=== PATIENT | male | born 1930 | race American Indian/Alaskan Native ===

== ENCOUNTER 2017-07-21 12:54 | Emergency (ER) | payer SELFPAY ==
[2017-07-21 13:03] VITALS: BP 175/79
[2017-07-21 15:57] LABS: Bilirubin,Urine NEG (Negative); Blood,Urine LG (Negative); Ketones,Urine NEG (Negative); Leukocyte Esterase,Urine SM (Negative); Mucus,Urine FEW /HPF; Nitrite,Urine NEG (Negative); Urobilinogen,Urine < 2.0 mg/dL (<2.0)
[2017-07-21 16:00] LABS: RBC,Urine > 182.0 /HPF (0.0-6.0)
--- NOTE | 2017-07-21 16:15 | Emergency Department Report ---
ED Male HPI - General Chief complaint: Urogenital-Female Stated complaint: PAINFUL WHILE URINATING Time Seen by Provider: 07/21/17 15:48 Source: patient, family Mode of arrival: Wheelchair Limitations: Language Barrier - History of Present Illness Initial comments: 6-year-old Norwegian speaking male who presents emergency Department with complaint of dysuria for approximately 2 weeks. Patient states she's had this before and has noticed blood in his urine when he was a child. He is no fevers or chills or nausea or vomiting. Otherwise denies any other complaints. Has not noticed any blood in his urine at this time. He has no history of renal colic. Radiation: none Improves with: none Worsens with: none - Related Data Previous Rx's Medication Instructions Recorded Last Taken Type Levofloxacin [Levaquin TAB] 500 mg PO ONCE #9 tablet 07/21/17 Unknown Rx Allergies Allergy/AdvReac Type Severity Reaction Status Date / Time aspirin Allergy Unknown Verified 07/21/17 13:03 codeine Allergy Unknown Verified 07/21/17 13:03 ED Review of Systems ROS: Stated complaint: PAINFUL WHILE URINATING Other details as noted in HPI Constitutional: denies: chills, fever Cardiovascular: denies: chest pain, palpitations ED Past Medical Hx - Past Medical History Previous Medical History?: Yes Hx Hypertension: Yes Additional medical history: parkinsons - Family History Family history: no significant - Medications Home Medications: Home Medications Medication Instructions Recorded Confirmed Last Taken Type Levofloxacin [Levaquin TAB] 500 mg PO ONCE #9 tablet 07/21/17 Unknown Rx ED Physical Exam - General Limitations: Language Barrier General appearance: alert, in no apparent distress - Head Head exam: Present: atraumatic, normocephalic - Eye Eye exam: Present: normal appearance - ENT ENT exam: Present: mucous membranes moist - Neck Neck exam: Present: normal inspection - Respiratory Respiratory exam: Present: normal lung sounds bilaterally. Absent: respiratory distress - Cardiovascular Cardiovascular Exam: Present: regular rate, normal rhythm. Absent: systolic murmur, diastolic murmur, rubs, gallop - GI/Abdominal GI/Abdominal exam: Present: soft, normal bowel sounds - Rectal Rectal exam: Present: deferred - Extremities Exam Extremities exam: Present: normal inspection - Back Exam Back exam: Present: normal inspection - Neurological Exam Neurological exam: Present: alert, oriented X3 - Psychiatric Psychiatric exam: Present: normal affect, normal mood - Skin Skin exam: Present: warm, dry, intact, normal color. Absent: rash ED Course Vital Signs 07/21/17 12:59 Temperature 98 F Pulse Rate 70 Respiratory 17 Rate Blood Pressure 175/79 O2 Sat by Pulse 99 Oximetry ED Medical Decision Making - Medical Decision Making 86-year-old male with a history of hematuria here with hematuria and elevation in white blood cell counts in urine. Plan treatment for possible infection and have him follow-up with urology as an outpatient. Critical care attestation.: If time is entered above; I have spent that time in minutes in the direct care of this critically ill patient, excluding procedure time. ED Disposition Clinical Impression: Hematuria, UTI (urinary tract infection) Disposition: TO HOME OR SELFCARE Is pt being admited?: No Condition: Stable Instructions: Acute Hematuria (ED), Urinary Tract Infection in Men (ED) Prescriptions: Levofloxacin [Levaquin TAB] 500 mg PO ONCE #9 tablet Referrals: PRIMARY CARE, [Primary Care Provider] - 3-5 Days
[2017-07-21] MEDS: LEVAQUIN PO ONE (17:06)
== END 2017-07-21 17:06 | disposition home or self-care (01) ==
LOC: ED 12:54
DX: N39.0 Urinary tract infection, site not specified (principal); R31.9 Hematuria, unspecified; I10 Essential (primary) hypertension; Z88.6 Allergy status to analgesic agent
CPT/HCPCS: 81001; 99283